=== PATIENT | male | born 1985 ===

== ENCOUNTER 2018-01-03 19:48 | Inpatient (IN) ==
[2018-01-03] MEDS ORDERED: PIPERACILLIN/TAZOBACTAM 3,375 MG in SODIUM CHLORIDE 0.9% 100 ML IV STA (19:53)
[2018-01-03] MEDS ORDERED: HYDROmorphone 2 MG/1 ML VIAL IV STA (19:53)
[2018-01-03] MEDS ORDERED: ONDANSETRON 4 MG/2 ML VIAL IV STA (19:54)
[2018-01-03] MEDS ORDERED: HYDROmorphone 2 MG/1 ML VIAL ONE (19:57)
[2018-01-03] MEDS ORDERED: PIPERACILLIN/TAZOBACTAM 3,375 MG VIAL IV ONE (19:57)
[2018-01-03] MEDS ORDERED: ONDANSETRON 4 MG/2 ML VIAL ONE (19:57)
[2018-01-03] MEDS ORDERED: HYDROmorphone 2 MG/1 ML VIAL IV PRN (22:17)
[2018-01-03] MEDS ORDERED: ONDANSETRON 4 MG/2 ML VIAL IV PRN (22:17)
[2018-01-03] MEDS ORDERED: DEXTROSE 50% 25 GM/50 ML VIAL IV PRN (22:17)
[2018-01-03] MEDS ORDERED: ACETAMINOPHEN 325 MG TABLET PO PRN (22:17)
[2018-01-03] MEDS ORDERED: GLUCAGON 1 MG VIAL IM PRN (22:17)
[2018-01-03] MEDS: SODIUM CHLORIDE 0.9% 1,000 ML IV SCH (22:34)
[2018-01-04] MEDS: PIPERACILLIN/TAZOBACTAM 3,375 MG in SODIUM CHLORIDE 0.9% 100 ML IV SCH ×3 (04:43→20:22)
[2018-01-04] MEDS ORDERED: BUPIVACAINE 0.25% 50 ML VIAL ONE (06:31)
[2018-01-04] MEDS ORDERED: LIDOCAINE 1%/EPI INJ 20 ML VIAL ONE (06:31)
[2018-01-04] MEDS ORDERED: TISSUE ADHESIVE 1 EACH APPLICATOR TOP ONE (07:56)
[2018-01-04] MEDS ORDERED: GLUCAGON 1 MG VIAL IM PRN (08:09)
[2018-01-04] MEDS ORDERED: DEXTROSE 50% 25 GM/50 ML VIAL IV PRN (08:09)
[2018-01-04] MEDS ORDERED: SEVOFLURANE 1 UNIT/15 MINUTE INH ONE (08:22)
[2018-01-04] MEDS ORDERED: PROPOFOL 200 MG/20 ML VIAL IV ONE (08:22)
[2018-01-04] MEDS ORDERED: fentaNYL 100 MCG/2 ML VIAL ONE (08:22)
[2018-01-04] MEDS ORDERED: ACETAMINOPHEN 1,000 MG/100 ML VIAL IV ONE (08:23)
[2018-01-04] MEDS ORDERED: SUCCINYLCHOLINE 200 MG/10 ML VIAL ONE (08:23)
[2018-01-04] MEDS ORDERED: ONDANSETRON 4 MG/2 ML VIAL ONE ×2 (08:23→08:48)
[2018-01-04] MEDS ORDERED: ROCURONIUM 100 MG/10 ML VIAL IV ONE (08:24)
[2018-01-04] MEDS ORDERED: MIDAZOLAM 2 MG/2 ML VIAL ONE (08:27)
[2018-01-04] MEDS: SODIUM CHLORIDE 0.9% 1,000 ML IV SCH ×3 (08:28→20:23)
[2018-01-04] MEDS: INSULIN REGULAR 100 UNIT/ML SUBCUT SCH ×4 (08:28→20:32)
[2018-01-04] MEDS ORDERED: ONDANSETRON 4 MG/2 ML VIAL IV PRN (08:50)
[2018-01-04 11:06] LABS: Basophils % 0.3 % (0.0-0.8); Eosinophils # 0.1 10*3/uL (0.0-0.87); Eosinophils % 0.6 % (0.00-10.9); Hematocrit 40.9 VOL% (42.0-52.0); Hemoglobin 14.2 GM/DL (14.0-18.0); Immature Granulocytes % 0.7 %; Immature Granulocytes Absolute 0.07 #; Lymphocytes # 2.1 10*3/uL (1.4-4.0); Lymphocytes % 21.3 % (21.2-54.2); Mean Corpuscular HGB Conc 34.7 GM/DL (32-36); Mean Corpuscular Hemoglobin 30 PG (27-34); Mean Corpuscular Volume 85.2 FL (87-102); Mean Platelet Volume 10.7 FL (9.6-12.0); Monocytes # 0.7 10*3/uL (0.11-0.8); Monocytes % 7.4 % (1.7-12.7); Neutrophils # 6.8 10*3/uL (1.4-7.4); Neutrophils % 69.7 % (38.7-73.9); Platelet Count 295 T/CUMM (130-400); Red Cell Distribution Width 12.7 % (9.3-17.3); White Blood Count 9.8 T/CUMM (4-12)
[2018-01-04 11:49] LABS: Albumin 3.3 G/DL (3.4-5.0); Bilirubin,Total 1.3 MG/DL (0.2-1.0); Calcium 8.4 MG/DL (8.5-10.1); Osmolality,Calculated 282.5 MOS/KG (273-304); Potassium 3.7 MMOL/L (3.5-5.1); Total Protein 6.7 G/DL (6.4-8.3)
[2018-01-04] MEDS: MORPHINE 4 MG/1 ML VIAL IV PRN ×2 (13:45→20:28)
[2018-01-05 03:45] LABS: Basophils % 0.5 % (0.0-0.8); Eosinophils # 0.2 10*3/uL (0.0-0.87); Eosinophils % 2.1 % (0.00-10.9); Hematocrit 39.7 VOL% (42.0-52.0); Hemoglobin 13.5 GM/DL (14.0-18.0); Immature Granulocytes % 0.5 %; Immature Granulocytes Absolute 0.04 #; Lymphocytes % 24.6 % (21.2-54.2); Mean Corpuscular Hemoglobin 30 PG (27-34); Mean Corpuscular Volume 87.1 FL (87-102); Mean Platelet Volume 10.4 FL (9.6-12.0); Monocytes # 0.8 10*3/uL (0.11-0.8); Monocytes % 10.1 % (1.7-12.7); Neutrophils # 5.2 10*3/uL (1.4-7.4); Neutrophils % 62.2 % (38.7-73.9); Platelet Count 292 T/CUMM (130-400); Red Blood Count 4.56 MC/CUMM (3.8-5.5); Red Cell Distribution Width 12.7 % (9.3-17.3); White Blood Count 8.3 T/CUMM (4-12)
[2018-01-05] MEDS: PIPERACILLIN/TAZOBACTAM 3,375 MG in SODIUM CHLORIDE 0.9% 100 ML IV SCH ×2 (04:49→11:16)
[2018-01-05] MEDS: SODIUM CHLORIDE 0.9% 1,000 ML IV SCH (07:00)
[2018-01-05] MEDS: INSULIN REGULAR 100 UNIT/ML SUBCUT SCH ×2 (08:08→11:01)
[2018-01-05 11:02] VITALS: BP 126/69
== END 2018-01-05 14:35 | disposition home or self-care (01) | DRG 340 ==
LOC: EDBD → EDUNIT# → N.ED 19:48 → N.EDINP 21:01 → N.3E 21:47
PROVIDERS: ADMIT Surgery; ATTEND Surgery